=== PATIENT | female | born 1940 | race Caucasian/White ===

== ENCOUNTER 2019-02-05 11:43 | Emergency (ER) | payer MEDICARE ==
[~2019-02-05] VITALS: Ht 157.5 cm; Wt 59.0 kg
--- NOTE | 2019-02-05 13:12 | RAD ---
EXAM: Left knee, 4 views. HISTORY: Pain. COMPARISON: None. FINDINGS: 4 views of the left knee are obtained. There is no fracture, dislocation or subluxation. There is no significant joint effusion. There are vascular calcifications. IMPRESSION: No acute osseous finding. Electronically signed by: Dawn Staton MD (02/05/2019 1:08 PM) [id number]
--- NOTE | 2019-02-05 13:37 | RAD ---
CLINICAL HISTORY: DX: Left Leg pain; recent immobilization; HX of DVT 20 yrs ago IMP: Left Leg negative for DVT COMPARISON: None available. TECHNIQUE: Ultrasound evaluation of the left lower extremity was performed from the groin to the upper calf with olivas scale, spectral and color doppler evaluation. FINDINGS: The left common femoral vein, and femoral vein, including the saphenous-femoral junction are normal in appearance. Color and spectral Doppler evaluation demonstrates normal spontaneous flow, augmentation and phasicity. The left popliteal vein and visualized calf veins also demonstrate normal compressibility and flow. IMPRESSION: No evidence for left lower extremity DVT. Electronically signed by: Milton Murphy MD (02/05/2019 1:34 PM) [id number]
[2019-02-05] MEDS ORDERED: TRAM-48 PO (13:58)
--- NOTE | 2019-02-05 13:58 | PHYS DOC ---
Past Medical History Past Medical History: COPD Past Surgical History: Hysterectomy, Tonsillectomy, Other Additional Past Surgical Histo: BLADDER SLING Alcohol Use: None Drug Use: None Adult General Chief Complaint Chief Complaint: LOWER EXT PAIN HPI HPI Patient is a 78 year old female who presents with complaining of left knee pain for more than one week. Patient states she had a trip to [place] and walked several miles every day for almost one week and complaining of pain behind of left knee as a constant aching pain that getting worse with walking and bearing weight. Patient denies new focal neuro deficit, fever and chills, shortness of breath and chest pain, earache injury. Patient states she had blood clots to the same lower extremity long time ago. Review of Systems Review of Systems Constitutional: Denies fever or chills [] Eyes: Denies change in visual acuity, redness, or eye pain [] HENT: Denies nasal congestion or sore throat [] Respiratory: Denies cough or shortness of breath [] Cardiovascular: No additional information not addressed in HPI [] GI: Denies abdominal pain, nausea, vomiting, bloody stools or diarrhea [] : Denies dysuria or hematuria [] Musculoskeletal: Denies back pain, reports joint pain [] Integument: Denies rash or skin lesions [] Neurologic: Denies headache, focal weakness or sensory changes [] Endocrine: Denies polyuria or polydipsia [] All other systems were reviewed and found to be within normal limits, except as documented in this note. Allergies Allergies Allergies Coded Allergies Type Severity Reaction Last Updated Verified Penicillins Allergy Severe ANAPHULAXIS 02/05/19 Yes Sulfa (Sulfonamide Antibiotics) Allergy Severe SEVERE RASH 02/05/19 Yes Physical Exam Physical Exam Constitutional: Well developed, well nourished, no acute distress, non-toxic appearance. [] HENT: Normocephalic, atraumatic. Eyes: PERRLA, EOMI, conjunctiva normal, no discharge. [] Neck: Normal range of motion, no tenderness, supple, no stridor. [] Cardiovascular:Heart rate regular rhythm, no murmur [] Lungs & Thorax: Bilateral breath sounds clear to auscultation [] Extremities: Left knee with mild edema without deformity, painful range of motion, negative Homans sign, no neurovascular deficit, no edema. [] Neurologic: Alert and oriented X 3, normal motor function, normal sensory function, no focal deficits noted. [] Psychologic: Affect normal, judgement normal, mood normal. [] Current Patient Data Vital Signs Vital Signs Date Time Temp Pulse Resp B/P (MAP) Pulse Ox O2 Delivery O2 Flow Rate FiO2 02/05/19 12:00 98.0 85 20 130/80 (97) 95 Room Air 98.0 EKG EKG [] Radiology/Procedures Radiology/Procedures [place] [id number] IMAGING REPORT Signed PATIENT: GABRIEL CARSON ACCOUNT: [id number] : 1940 LOCATION: ER AGE: 78 SEX: F EXAM STATUS: REG ER ORD. PHYSICIAN: ADOLFO HOLBROOK MD REASON: Pain AND SWELLING X 2 WEEKS NO SPECIFIC INJURY PROCEDURE: KNEE LEFT 4V EXAM: Left knee, 4 views. HISTORY: Pain. COMPARISON: None. FINDINGS: 4 views of the left knee are obtained. There is no fracture, dislocation or subluxation. There is no significant joint effusion. There are vascular calcifications. IMPRESSION: No acute osseous finding. Electronically signed by: Dawn Arroyo MD (02/05/2019 1:08 PM) [place] [id number] DICTATED and SIGNED BY: DAWN ARROYO MD DATE: 02/05/[address] [address] IMAGING REPORT Signed PATIENT: GABRIEL CARSON ACCOUNT: [id number] : 1940 LOCATION: ER AGE: 78 SEX: F EXAM STATUS: REG ER ORD. PHYSICIAN: ADOLFO HOLBROOK MD REASON: pain, recent immobilization, history of DVT PROCEDURE: VENOUS LOWER EXTREMITY LEFT CLINICAL HISTORY: DX: Left Leg pain; recent immobilization; HX of DVT 20 yrs ago IMP: Left Leg negative for DVT COMPARISON: None available. TECHNIQUE: Ultrasound evaluation of the left lower extremity was performed from the groin to the upper calf with olivas scale, spectral and color doppler evaluation. FINDINGS: The left common femoral vein, and femoral vein, including the saphenous-femoral junction are normal in appearance. Color and spectral Doppler evaluation demonstrates normal spontaneous flow, augmentation and phasicity. The left popliteal vein and visualized calf veins also demonstrate normal compressibility and flow. IMPRESSION: No evidence for left lower extremity DVT. Electronically signed by: Milton Shoemaker MD (02/05/2019 1:34 PM) [id number] DICTATED and SIGNED BY: MILTON SHOEMAKER MD DATE: 02/05/19 1334 Course & Med Decision Making Course & Med Decision Making Pertinent Imaging studies reviewed. (See chart for details) Evaluation of patient in ER showed 78-year-old female patient with complaining of left knee pain after walking a lot and had recent immobilization during her trip to [place]. Mild edema of left knee. Patient had unremarkable x-ray and negative ultrasound for DVT. Patient did not want to have pain medication in ER. Plan to apply Jasson wrap and discharged with prescription of tramadol and apply ice on her left knee. Dragon Disclaimer Dragon Disclaimer This electronic medical record was generated, in whole or in part, using a voice recognition dictation system. Departure Departure Impression: Primary Impression: Left knee sprain Disposition: 01 HOME, SELF-CARE (at 1356) Condition: STABLE Referrals: UNKNOWN PCP NAME (PCP) Patient Instructions: Knee Sprain Additional Instructions: Apply ice on left knee Follow-up with your primary care physician in 3-5 days Return to ER if not getting better Scripts Tramadol Hcl (ULTRAM) 50 Mg Tablet 50 MG PO Q6HRS PRN for PAIN, #20 TAB 0 Refills Prov: ADOLFO HOLBROOK MD 02/05/19 ADOLFO HOLBROOK MD Feb 05, 2019 13:58
[2019-02-05 14:00] VITALS: BP 126/78
== END 2019-02-05 15:40 | disposition home or self-care (01) ==
LOC: ER 11:43
DX: S83.92XA Sprain of unspecified site of left knee, initial encounter (principal); J44.9 Chronic obstructive pulmonary disease, unspecified; Z88.0 Allergy status to penicillin; Z88.2 Allergy status to sulfonamides; X50.3XXA Overexertion from repetitive movements, initial encounter; Y93.01 Activity, walking, marching and hiking; Y92.89 Other specified places as the place of occurrence of the external cause; Y99.8 Other external cause status
CPT/HCPCS: 73564; 93971; 99284-25